=== PATIENT | female | born 1945 | race Caucasian/White ===

== ENCOUNTER 2017-04-16 20:42 | Observation (INO) ==
[2017-04-16] MEDS ORDERED: SALINE FLUSH 10ml SYRINGE IVF PRN (20:52)
[2017-04-16] MEDS ORDERED: METHYLPREDNISOLONE SOD SUCC IV ONE (20:53)
[2017-04-16] MEDS ORDERED: NS IV ONE (20:53)
[2017-04-16] MEDS ORDERED: KETOROLAC 30 MG/ML INJECTION IVP ONE (20:53)
[2017-04-16] MEDS ORDERED: NS 1,000 ML IV ONE (20:57)
--- OUTSIDE RECORDS SUMMARY | 2017-04-16 21:03 | External Medical Summary | Continuity of Care Document ---
:1945 Author Organization Shereen [employer] Phone Unavailable Support Name Relationship Address Phone ANDREW ALCALA M.D. Unavailable [address] [place] [address] SHAAN VENTURA M.D. Unavailable [address] [place] [address] ANESTHESIA, MID FELECIA MAJOR GIFTS MANAGER Unavailable [address] [place] [address] VICKI KWON Unavailable [address] [place] [address] Care Team Providers Name Role Phone ANDREW ALCALA M.D. Primary Care Physician Insurance Providers Guarantor Annamarie Kwno Address [address] [place] [address] Payer s Medicare Policy Number [id number] Subscriber's Name Annamarie Kwon Relationship 01 Self / Same As Patient Effective Date 16 Payer [facility] Policy Number [id number] Subscriber's Name Annamarie Kwon Relationship 01 Self / Same As Patient Effective Date 16 Advance Directives Directive Response Recorded Date/Time Patient Resuscitation Status Full Code 02/04/16 7:05am Problems Active Problems Medical Problem Onset Date Status Multiple sclerosis 03/23/2011 Acute Pain, joint, knee 03/25/2011 Acute Spinal stenosis 03/23/2011 Acute Medications Current Home Medications Medication Dose Units Route Directions Days Qty Instructions Start Date Acetaminophen/Codeine 1 Ea Oral As Needed 01/27/16 (Tylenol #3) 1 Ea Tab Baclofen 20 Mg Tab 20 Mg Oral Am,10MG Pm 02/03/16 Fingolimod Hydrochloride 0.5 Mg Oral Daily 01/27/16 (Gilenya) 0.5 Mg Cap Prednisone 10 Mg Gil Daily 02/03/16 Pregabalin (Lyrica) 50 50 Mg Oral Daily 01/27/16 Mg Cap Triamterene (Dyrenium) 100 Mg Oral Daily 01/27/16 100 Mg Cap Social History Social History Problem Response Recorded Date/Time Onset Date Status Smoking Status Never smoker 02/04/2016 7:05am Not Applicable Not Applicable Query Response Start Date Stop Date Smoking Status Never smoker Hospital Discharge Instructions No hospital discharge instructions. Plan of Care Discharge Date 02/04/16 12:00pm Prescriptions See Medication Section Functional Status Query Response Date Recorded Overall Activities Daily Living Limited/One person assist February 04, 2016 7: 05am Ability/Staff Support Memory Description Short term intact February 04, 2016 7:05am intermediate teacher intact Allergies, Adverse Reactions, Alerts Allergen Type Severity Reaction Status Last Updated Sulfa Antibiotics ([id number]) Allergy Unknown rash Active 02/03/16 Micropore tape Allergy Unknown Active 02/04/16 Immunizations Query Response on File Recorded Date/Time Pneumonia Vaccine Received No 02/04/16 7:05am Had a Tetanus Toxoid Vaccination less than 10yrs Yes 02/04/16 7:05am ago Vital Signs Acute Vital Signs Vital Response Date/Time Blood Pressure 153/75 mm Hg 02/04/2016 11:15am Blood Pressure Mean 99 mm Hg 02/04/2016 10:55am Blood Pressure Mean 101 mm Hg 02/04/2016 11:15am Temperature (Fahrenheit) 97.6 degrees F (96.0 - 99.9) 02/04/2016 11:00am Temperature (Calculated Celsius) 36.92432 degrees C 02/04/2016 11:00am Temperature Source Oral 02/04/2016 11:00am Temp 97.6 degrees F (96.0 - 99.9) 02/04/2016 11:00am Temperature (Calculated Celsius) 36.22656 degrees C 02/04/2016 11:00am Pulse Pulse Rate (adult) 83 bpm (60 - 100) 02/04/2016 11:15am Pulse Rate (adult) 81 bpm (60 - 100) 02/04/2016 10:55am Respiratory Rate 16 breaths per minute (10 - 20) 02/04/2016 11:15am Respiratory Rate 14 bpm (10 - 20) 02/04/2016 10:55am Height (Feet) 5 ft 02/04/2016 7:05am Height (Inches) 5.0 in. 02/04/2016 7:05am Weight (Pounds) 193.8 lbs 02/04/2016 7:05am Height 5 ft 5 in 02/04/2016 7:05am Weight 193.80 lb 02/04/2016 7:05am Body Mass Index 32.2 kg/m^2 02/04/2016 7:05am Ambulatory Vital Signs Vital Response Date/Time Temperature 98.2 degrees F 01/27/2016 11:39am Blood Pressure, Sitting, Left Arm 127/63 mm Hg 01/27/2016 11:39am Pulse Rate 87 bpm 01/27/2016 11:39am Respiration Rate 16 bpm 01/27/2016 11:39am Pulse Oximetry Pulse Oximetry 01/27/2016 11:39am Results Laboratory Results Test Name Result Units Flags Reference Collection Result Comments Date/Time Date/Time Rheumatoid <15 IU/mL 0-29 04/30/2015 04/30/2015 Rheumatoid Factor performed at [facility] Reference Lab, [address] [place] [address]
Factor 1:01pm 11:34pm [id number] Smiley Henriquez DO&#13 ;
Procedures Procedure Status Date Provider(s) N BLOCK INJ INTERCOST RIGGING UP MAN Completed 11/11/14 ANDREW ALCALA M.D. INJ TRIGGER POINT 1/2 MUSCL Completed 11/11/14 ANDREW ALCALA M.D. Laparoscopic cholecystectomy Completed 02/04/16 SHAAN VENTURA M.D. Encounters Encounter Location Arrival/Admit Date Discharge/Depart Date Attending Provider Departed Shereen Tafoya 02/04/16 7:05am 02/04/16 12:00pm SHAAN VENTURA Surgical Day Mem. Leyda Rivers M.D. Care Office Visit SHAAN VENTURA 01/27/16 11:30am SHAAN VENTURA M.D. Registered Shaan Ventura 01/27/16 11:28am SHAAN VENTURA M.D. Departed Clinic Shereen Tafoya 11/10/15 11:00am 11/10/15 11:30am ANDREW ALCALA Mem., M.D. Registered Shereen Tafoya 06/06/15 9:08am ANDREW ALCALA [facility] Desai Registered Shereen Tafoya 05/26/15 8:00am CARIANDREW Referred Mem. [facility] Ailyn Sami Registered Shereen Tafoya 05/13/15 10:51am CARIDAGOY [facility] Mem[facility] 05/02/15 12:06pm SHARYN [facility] Reg[facility] Shereen Tafoya 04/30/15 11:18am LIBRODO, Referred Mem. [facility] STEPHEN Quinonez M.D. Office Visit [facility] 04/30/15 10:30am SHARYN [facility] Registered [facility] 04/30/15 10:30am SHARYN LOYOLA [facility] Shereen Tafoya 04/30/15 10:30am SHARYN LOYOLA [facility] 03/14/15 8:30am [facility] Shereen Tafoya 03/14/15 8:30am SHARYN LOYOLA [facility] Registered Shereen Tafoya 03/14/15 8:04am LIBRODO, Referred Mem. Leyda Quinonez M.D. Departed Clinic Shereen Tafoya 11/11/14 1:44pm 11/11/14 2:25pm CARIDAGOY Mem. [facility] Ailyn Sami Registered Shereen Tafoya 08/14/14 7:04pm CARIANDREW Referred Mem. [facility] Ailyn Desai Registered Shereen Tafoya 03/15/14 1:28pm LIBRODO, Referred Mem. [facility] STEPHEN Giselle Registered Shereen Tafoya 01/10/14 11:50am CARI, ANDREW Referred Mem. [facility] Ailyn Sami Registered Shereen Tafoya 11/05/13 2:59pm [facility] 07/04/13 11:06am CARI, [facility]REW [facility]
--- OUTSIDE RECORDS SUMMARY | 2017-04-16 21:03 | External Medical Summary | Referral Summary ---
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 Discharge Diagnosis: Multiple sclerosis Discharge Diagnosis: Post herpetic neuralgia Discharge Diagnosis: Vitamin B12 deficiency Discharge Diagnosis: Vitamin D deficiency Discharge Disposition: 01-Home or Self Care Attending Physician: Gautam Davila MD Admitting Physician: Gautam Davila MD Vital Signs Most recent to oldest [Reference Range]: 1 Peripheral Pulse Rate [60-100 bpm] 64 bpm (08/29/14 8:17 AM) Blood Pressure [90-140/60-90 mmHg] 120/80 mmHg (08/29/14 8:17 AM) Problem List Condition Effective Dates Status Health Status Informant Gait abnormality(Confirmed) Active Blepharitis(Confirmed) Active Vitamin B12 deficiency(Confirmed) Active Pelvic fracture(Confirmed) Active History of long-term treatment with Active high-risk medication(Confirmed) Shingles(Confirmed) Resolved Mastoiditis(Confirmed) Active Multiple sclerosis Active (disorder)(Confirmed)1 Overweight(Confirmed) Active Paresthesias(Confirmed) Active Postherpetic neuralgia(Confirmed) Active Primary open angle glaucoma Active (disorder)(Confirmed) Chicken pox(Confirmed) Resolved Vitamin D deficiency(Confirmed) Active 1s/p tysabri x4 yrs, stopped in 2012 Allergies, Adverse Reactions, Alerts No Known Medication Allergies Medications baclofen 10 mg oral tablet See Instructions, TAKE TWO TABLETS BY MOUTH TWICE A DAY, # 120 tabs, 3 Refill(s) , Pharmacy: [facility] #[id number], TAKE TWO TABLETS BY MOUTH TWICE A DAY Start Date: 02/10/15 Status: OrderedCalcium 600+D Oral, 0 Refill(s) Start Date: 01/29/15 Status: Orderedgabapentin 300 mg oral capsule 300 mg 1 caps, Oral, TID, # 90 caps, 0 Refill(s), Pharmacy: [facility] # [id number], 1 caps Oral TID Start Date: 02/24/15 Status: OrderedGilenya 0.5 mg, Oral, Daily, 0 Refill(s) Start Date: 10/04/13 Status: OrderedSimbrinza 1%- 0.2% ophthalmic suspension See Instructions, INSTILL ONE DROP TO THE RIGHT EYE TWICE A DAY, # 8 mL, 5 Refill(s), Pharmacy: [facility] #[id number] Start Date: 12/03/14 Status: OrderedVitamin B12 1,000 mcg, Oral, Daily, 0 Refill(s) Start Date: 11/16/13 Status: OrderedVitamin D3 2000 intl units oral capsule Intl_Units caps, Oral, Daily, 0 Refill(s) Start Date: 01/29/15 Status: OrderedXalatan 0.005% ophthalmic solution 1 drops, Eye-Right, Bedtime (once a day), # 2.5 mL, 0 Refill(s) Start Date: 10/04/13 Status: Ordered Results No data available for this section Immunizations No data available for this section Procedures Procedure Date Related Diagnosis Body Site Cataract of right eye 2001 Cataract of left eye 1999 back surgery1 Hysterectomy 1Tysabri Social History Social History Type Response Smoking Status Never smoker Assessment and Plan Extracted from: Title: Neurology Follow-up Office Note Author: Gautam Davila MD Date: 08/29/14 Impression and Plan Diagnosis Vitamin D deficiency (ICD9 268.9, Discharge, Medical). Vitamin B12 deficiency (ICD9 266.2, Discharge, Medical). Post herpetic neuralgia (ICD9 053.19, Discharge, Medical). Multiple sclerosis (ICD9 340, Discharge, Medical). termite treater use of drug (ICD9 V58.69, Discharge, Medical). Dx/Order Association Plan: Diagnosis: Multiple sclerosis Comment: MS, on Gilenya since 09/2012 s/p Daysi x4 years, off Jan 2012 On Gilenya, continue On baclofen 20mg bid, continue We discussed first PML case reported in a Gilenya patient, and need for vigilant monitoring of blood counts and symptoms We discussed about her shingles. We discussed that her Gilenya could potentially predispose her to having infections. Advised her to let me know if she continues to have infections, as we may need to consider switching her off of Gilenya--potentially to Aubagio On duloxetine, not helping--advised can stop Diagnosis: Post herpetic neuralgia Comment: On duloxetine, getting off Tried by PCP on Lyrica, apparently did not help Currently on hydrocodone and Depakote by PCP, helping--continue per PCP Has never been on gabapentin due to fear of weight gain Discussed Diagnosis: termite treater use of drug Comment: On Gilenya and Depakote, needs lab monitoring Diagnosis: Vitamin B12 deficiency Comment: On vit B12 1000mcg daily, continue Diagnosis: Vitamin D deficiency Comment: On vit D 2000 IU daily, continue .
--- OUTSIDE RECORDS SUMMARY | 2017-04-16 21:03 | External Medical Summary | Referral Summary ---
:1945 Author Organization [facility] Address [address] [place] [address] Care Team Providers Name Role Phone Radha Godoy Primary Care Physician Encounter [facility] Date(s): 11/22/14 - 11/22/14 [facility] [address] [place] [address] [place] Discharge Diagnosis: Multiple sclerosis Discharge Diagnosis: Blepharitis Discharge Diagnosis: Glaucoma suspect Discharge Diagnosis: POAG (primary open-angle glaucoma) Discharge Disposition: -Home or Self Care Attending Physician: Chelsie Dias MD Admitting Physician: Chelsie Dias MD Referring Physician: Radha Godoy MD Vital Signs No data available for this section Problem List Condition Effective Dates Status Health [...] # 120 tabs, 3 Refill(s) , Pharmacy: [facility] #[id number], TAKE TWO TABLETS BY MOUTH TWICE A DAY Start Date: 02/10/15 Status: OrderedCalcium 600+D Oral, 0 Refill(s) Start Date: 01/29/15 Status: Orderedgabapentin 300 mg oral capsule 300 mg 1 caps, Oral, TID, # 90 caps, 0 Refill(s), Pharmacy: [facility] # [id number], 1 caps Oral TID Start Date: 02/24/15 Status: OrderedGilenya 0.5 mg, Oral, Daily, 0 Refill(s) Start Date: 10/04/13 Status: OrderedSimbrinza 1%- 0.2% ophthalmic suspension See Instructions, INSTILL ONE DROP TO THE RIGHT EYE TWICE A DAY, # 8 mL, 5 Refill(s), Pharmacy: [facility] #[id number] Start Date: 12/03/14 Status: OrderedVitamin B12 1,000 [...] smoker Assessment and Plan Extracted from: Title: Ambulatory Patient Education Author: Chelsie Dias MD Date: 11/22/14 Ophthalmology Glaucoma Glaucoma happens when the fluid pressure in the eyeball is too high. The pressure cannot stay high for too long, or the eyeball may become damaged. Signs of glaucoma include: Having a hard time seeing in a dark room after being in a bright one. Having trouble seeing things out to the sides of you. Blurry sight. Seeing bright white lights or colors in front of your eyes. Headaches. Feeling sick to your stomach (nauseous) or throwing up (vomiting). Sudden vision loss. Glaucoma testing is an important part of taking care of your eyesight. HOME CARE Always use your eyedrops or pills as told by your doctor. Do not run out. Do not go away from home without your eyedrops or pills. Keep your appointments. Always tell a new doctor that you have glaucoma and how long you have had it. Tell the doctor about the eyedrops and pills you take. Do not use eyedrops or pills that have not been prescribed by your doctor. GET HELP RIGHT AWAY IF: You develop severe pain in the affected eye. You develop vision problems. You develop a bad headache in the area around the eye. You feel sick to your stomach or throw up. You start to have problems with the other eye. MAKE SURE YOU: Understand these instructions. Will watch your condition. Will get help right away if you are not doing well or get worse. Document Released: 2009 Document Revised: 07/03/2012 Document Reviewed: 2009 [facility] [place] Patient Information 2015 [employer] [place]. This information is not intended to replace advice given to you by your health care provider. Make sure you discuss any questions you have with your health care provider. No follow up information was provided. Referrals to Other Providers Referred by: Chelsie Dias MD
--- OUTSIDE RECORDS SUMMARY | 2017-04-16 21:03 | External Medical Summary | Referral Summary ---
:1945 Author Organization [facility] Address [address] [facility] [address] [place] [address] Care Team Providers Name Role Phone Radha Godoy Primary Care Physician Encounter VC 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 Discharge Diagnosis: Multiple sclerosis [...] # 120 tabs, 3 Refill(s) , Pharmacy: [facility] #[id number], TAKE TWO TABLETS BY MOUTH TWICE A DAY Start Date: 02/10/15 Status: OrderedCalcium 600+D Oral, 0 Refill(s) Start Date: 01/29/15 Status: Orderedgabapentin 300 mg oral capsule 300 mg 1 caps, Oral, TID, # 90 caps, 0 Refill(s), Pharmacy: [facility] # [id number], 1 caps Oral TID Start Date: 02/24/15 Status: OrderedGilenya 0.5 mg, Oral, Daily, 0 Refill(s) Start Date: 10/04/13 Status: OrderedSimbrinza 1%- 0.2% ophthalmic suspension See Instructions, INSTILL ONE DROP TO THE RIGHT EYE TWICE A DAY, # 8 mL, 5 Refill(s), Pharmacy: [facility] #[id number] Start Date: 12/03/14 Status: OrderedVitamin B12 1,000 [...] Medical). Multiple sclerosis (ICD9 340, Discharge, Medical). terminal computer operator use of drug (ICD9 V58.69, Discharge, Medical). [...] to fear of weight gain Discussed Diagnosis: terminal computer operator use of drug Comment: On Gilenya and Depakote, needs lab monitoring Diagnosis: Vitamin B12 deficiency Comment: On vit B12 1000mcg daily, continue Diagnosis: Vitamin D deficiency Comment: On vit D 2000 IU daily, continue .
--- OUTSIDE RECORDS SUMMARY | 2017-04-16 21:03 | External Medical Summary | Referral Summary ---
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 Discharge Diagnosis: Multiple sclerosis [...] # 120 tabs, 3 Refill(s) , Pharmacy: [facility] #[id number], TAKE TWO TABLETS BY MOUTH TWICE A DAY Start Date: 02/10/15 Status: OrderedCalcium 600+D Oral, 0 Refill(s) Start Date: 01/29/15 Status: Orderedgabapentin 300 mg oral capsule 300 mg 1 caps, Oral, TID, # 90 caps, 0 Refill(s), Pharmacy: [facility] # [id number], 1 caps Oral TID Start Date: 02/24/15 Status: OrderedGilenya 0.5 mg, Oral, Daily, 0 Refill(s) Start Date: 10/04/13 Status: OrderedSimbrinza 1%- 0.2% ophthalmic suspension See Instructions, INSTILL ONE DROP TO THE RIGHT EYE TWICE A DAY, # 8 mL, 5 Refill(s), Pharmacy: [facility] #[id number] Start Date: 12/03/14 Status: OrderedVitamin B12 1,000 [...] Medical). Multiple sclerosis (ICD9 340, Discharge, Medical). moth exterminator use of drug (ICD9 V58.69, Discharge, Medical). [...] to fear of weight gain Discussed Diagnosis: moth exterminator use of drug Comment: On Gilenya and Depakote, needs lab monitoring Diagnosis: Vitamin B12 deficiency Comment: On vit B12 1000mcg daily, continue Diagnosis: Vitamin D deficiency Comment: On vit D 2000 IU daily, continue .
--- OUTSIDE RECORDS SUMMARY | 2017-04-16 21:03 | External Medical Summary | Continuity of Care Document ---
:1945 Author Organization Shereen HerzogAkanksha Michelet [facility] Phone Unavailable Care Team Providers Name Role Phone ANDREW ALCALA M.D. Primary Care Physician Insurance Providers Guarantor Annamarie Luna Address [address] [place] [address] Payer [employer] Medicare Policy Number [id number] Subscriber's Name Annamarie Luna Relationship 01 Self / Same As Patient Payer [facility] Policy Number [id number] Subscriber's Name Annamarie Luna Relationship 01 Self / Same As Patient Advance Directives No advance directive information available. Problems Medical Problem Onset Date Status Degenerative joint disease of knee, left Unknown Lateral meniscal tear Unknown Multiple sclerosis 03/23/2011 Acute Osteoarthritis of left knee Unknown Pain, joint, knee 03/25/2011 Acute Sacroiliitis Unknown Spinal stenosis 03/23/2011 Acute Medications Current Home Medications Medication Dose Units Route Directions Days Qty Instructions Start Date Acetaminophen/Codeine 1 Ea Oral As Needed (Tylenol #3) 1 Ea Tab Baclofen 20 Mg Tab 20 Mg Oral Am,10MG Pm Fingolimod Hydrochloride 0.5 Mg Oral Daily (Gilenya) 0.5 Mg Cap Prednisone 10 Mg Gil Daily Pregabalin (Lyrica) 50 50 Mg Oral Daily Mg Cap Triamterene (Dyrenium) 100 Mg Oral Daily 100 Mg Cap Social History Social History Problem Response Recorded Date/Time Onset Date Status Smoking Status Never smoker 02/04/2016 7:05am Not Applicable Not Applicable Smoking Status Start Date Stop Date Never smoker Hospital Discharge Instructions No hospital discharge instruction information available. Plan of Care Discharge Date 01/14/17 2:59pm Prescriptions See Medication Section Functional Status No functional status information available. Allergies, Adverse Reactions, Alerts Allergen Type Severity Reaction Status Last Updated Sulfa Antibiotics ([id number]) Allergy Unknown rash Active 02/03/16 Micropore tape Allergy Unknown Active 02/04/16 Immunizations No immunization information available. Vital Signs Acute Vital Signs Vital Response Date/Time Blood Pressure 158/63 mm Hg 02/04/2016 12:00pm Blood Pressure Mean 99 mm Hg 02/04/2016 10:55am Blood Pressure Mean 94 mm Hg 02/04/2016 12:00pm Temperature (Fahrenheit) 97.6 degrees F (96.0 - 99.9) 02/04/2016 12:00pm Temperature (Calculated Celsius) 36.16686 degrees C 02/04/2016 12:00pm Temperature Source Oral 02/04/2016 12:00pm Temp 97.6 degrees F (96.0 - 99.9) 02/04/2016 11:00am Temperature (Calculated Celsius) 36.59886 degrees C 02/04/2016 11:00am Pulse Pulse Rate (adult) 83 bpm (60 - 100) 02/04/2016 12:00pm Pulse Rate (adult) 81 bpm (60 - 100) 02/04/2016 10:55am Respiratory Rate 16 breaths per minute (10 - 20) 02/04/2016 12:00pm Respiratory Rate 14 bpm (10 - 20) 02/04/2016 10:55am Height (Feet) 5 ft 02/04/2016 7:05am Height (Inches) 5.0 in. 02/04/2016 7:05am Weight (Pounds) 193.8 lbs 02/04/2016 7:05am Ambulatory Vital Signs Vital Response Date/Time Height 5 ft 5 in 01/14/2017 1:56pm Weight 213 lbs 01/14/2017 1:56pm Body Surface Area 2.15 m2 01/14/2017 1:56pm Body Mass Index 35.4 kg/m2 01/14/2017 1:56pm Pulse Oximetry Pulse Oximetry 01/14/2017 1:56pm Results Laboratory Results Test Name Result Units Flags Reference Collection Result Comments Date/Time Date/Time Rheumatoid <15 IU/mL 0-29 04/30/2015 04/30/2015 Rheumatoid Factor performed at [facility] Reference Lab, [address], [place] Factor 1:01pm 11:34pm [id number] Pulping Machine Operator Smiley Henriquez, DO Bedside 111 mg/dL 70-120 02/04/2016 02/05/2016 Glucose 7:44am 7:51am Creatinine 0.54 mg/dL L 0.9-1.6 04/22/2016 04/22/2016 8:30am 9:28am Glomerular 111.61 mL/min 04/22/2016 04/22/2016 MULTIPLY RESULT BY 1.210 IF THE PATIENT IS -TRISTANIAN Filtration 8:30am 9:28am Units are mL/min/1.73 m2 Rate Calc > 60 Normal kidney function 30-59 Moderately decreased kidney function 15-29 Severely decreased kidney function <15 End-stage kidney failure Procedures Procedure Status Date Provider(s) N BLOCK INJ INTERCOST PLANNING MANAGER Completed 11/11/14 ANDREW ALCALA M.D. INJ TRIGGER POINT /2 MUSCL Completed 11/11/14 ANDREW ALCALA M.D. LAPAROSCOPIC CHOLECYSTECTOMY Completed 02/04/16 INJ FOR SACROILIAC JOINT;PROVISION OF Completed 12/08/16 STEPHEN RIOS M.D. ANESTH,STEROID/THER AG Encounters Encounter Location Arrival/Admit Date Discharge/Depart Date Attending Provider Departed Clinic Shereen Tafoya 01/14/17 2:19pm 01/14/17 2:59pm Mem. Leyda RIOS M.D. 01/14/17 1:45pm Jamaal RIOS M.D. Departed Clinic Shereen Tafoya 12/08/16 12:33pm 12/08/16 1:05pm Mem. Leyda RIOS M.D. 12/08/16 9:16am Holli RIOS Mem. Leyda Quinonez M.D. Registered Shereen Tafoya 07/20/16 8:59am CARI[facility] ANDREW [facility] Shereen Tafoya 06/29/16 11:42am CARI, ANDREW [facility] Registered Shereen Tafoya 05/10/16 8:35am CARI, ANDREW Referred Mem. [facility] Registered Shereen Tafoya 04/22/16 8:26am CARI, ANDREW Referred Mem. [facility] Registered Shereen Tafoya 04/16/16 11:42am CARI, ANDREW Referred Mem. [facility] Registered Shereen Tafoya 03/12/16 8:30am SHARYN LOYOLA [facility]. [facility] Registered [facility] 03/12/16 8:30am [facility] Shereen Tafoya 03/12/16 8:12am LIBRODO, Referred Mem. [facility] STEPHEN Quinonez M.D. Registered Shaan Ventura 03/02/16 9:15am SHAAN VENTURA [facility] Tita Desai Departed Shereen Tafoya 02/04/16 7:05am 02/04/16 12:00pm SHAAN VENTURA [facility] Leyda Rivers M.D. Care Departed Clinic Shereen Tafoya 11/10/15 11:00am 11/10/15 11:30am CARI, ANDREW Mem. [facility] N. .Nanci Registered Shereen Tafoya 06/06/15 9:08am CARI, ANDREW Referred Mem. Hospital NA[facility] .Nanci Registered Shereen Tafoya 05/26/15 8:00am CARI, ANDREW Referred Mem. Hospital N. .DAkanksha Registered Shereen Tafoya 05/13/15 10:51am CARI, ANDREW Referred Mem. [facility] Registered Shereen Tafoya 05/02/15 12:06pm SHARYN LOYOLA Referred Mem. [facility] Registered Shereen Tafoya 04/30/15 11:18am LIBRODO, Referred Mem. [facility] STEPHEN Quinonez M.D. Registered Shereen Tafoya 04/30/15 10:30am SHARYN LOYOLA [facility]. [facility] Registered Shereen Tafoya 03/14/15 8:30am SHARYN LOYOLA [facility]. [facility] Registered Shereen Tafoya 03/14/15 8:04am Holli RIOS [facility] STEPHEN Quinonez M.D. Departed Clinic Shereen Tafoya 11/11/14 1:44pm 11/11/14 2:25pm ANDREW ALCALA [facility] Ailyn Desai Registered Shereen Tafoya 08/14/14 7:04pm ANDREW ALCALA [facility] Ailyn Desai
--- OUTSIDE RECORDS SUMMARY | 2017-04-16 21:04 | External Medical Summary | Referral Summary ---
:1945 Author Organization [facility] Address [address] [place] [address] Care Team Providers Name Role Phone Radha Godoy Primary Care Physician Encounter VC Date(s): 11/22/14 - 11/22/14 [facility] [address] [place] [address]- [place] Discharge Diagnosis: Multiple sclerosis [...] # 120 tabs, 3 Refill(s) , Pharmacy: [facility] #[id number], TAKE TWO TABLETS BY MOUTH TWICE A DAY Start Date: 02/10/15 Status: OrderedCalcium 600+D Oral, 0 Refill(s) Start Date: 01/29/15 Status: Orderedgabapentin 300 mg oral capsule 300 mg 1 caps, Oral, TID, # 90 caps, 0 Refill(s), Pharmacy: [facility] # [id number], 1 caps Oral TID Start Date: 02/24/15 Status: OrderedGilenya 0.5 mg, Oral, Daily, 0 Refill(s) Start Date: 10/04/13 Status: OrderedSimbrinza 1%- 0.2% ophthalmic suspension See Instructions, INSTILL ONE DROP TO THE RIGHT EYE TWICE A DAY, # 8 mL, 5 Refill(s), Pharmacy: [facility] #[id number] Start Date: 12/03/14 Status: OrderedVitamin B12 1,000 [...] Document Revised: 07/03/2012 Document Reviewed: [facility] Patient Information 2015 [employer]. This information is not intended to replace advice given to you by your health care provider. Make sure you discuss any questions you have with your health care provider. No follow up information was provided. Referrals to Other Providers Referred by: Chelsie Dias MD
--- OUTSIDE RECORDS SUMMARY | 2017-04-16 21:04 | External Medical Summary | Referral Summary ---
:1945 Author Organization [facility] Address [address] [place] [address] Care Team Providers Name Role Phone Radha Godoy Primary Care Physician Encounter VC Date(s): 01/29/15 - 01/29/[address] [facility] [address] [place], [place] [address] Discharge Diagnosis: History of long-term treatment with high-risk medication Discharge Diagnosis: Vitamin D deficiency Discharge Diagnosis: Postherpetic neuralgia Discharge Diagnosis: Vitamin B12 deficiency Discharge Diagnosis: Multiple sclerosis (disorder) Discharge Disposition: 01-Home or Self Care Attending Physician: Gautam Davila MD Admitting Physician: Gautam Davila MD Referring Physician: Radha Godoy MD Vital Signs Most recent to oldest [Reference Range]: 1 Peripheral Pulse Rate [60-100 bpm] 80 bpm (01/29/15 8:32 AM) Blood Pressure [90-140/60-90 mmHg] 118/74 mmHg (01/29/15 8:32 AM) Problem List Condition Effective Dates Status Health Status Informant Gait abnormality(Confirmed) Active Blepharitis(Confirmed) Active Vitamin B12 deficiency(Confirmed) Active History of long-term treatment with Active [...] MOUTH TWICE A DAY, # 120 tabs, eRx: [facility] #[id number], TAKE TWO TABLETS BY MOUTH TWICE A DAY Start Date: 01/10/15 Status: OrderedCalcium 600+D Oral, 0 Refill(s) Start Date: 01/29/15 Status: Orderedgabapentin 300 mg oral capsule 300 mg 1 caps, Oral, BID, # 60 caps, 2 Refill(s), Pharmacy: [facility] # [id number], 1 caps Oral BID Start Date: 01/29/15 Status: OrderedGilenya 0.5 mg, Oral, Daily, 0 Refill(s) Start Date: 10/04/13 Status: OrderedSimbrinza 1%- 0.2% ophthalmic suspension See Instructions, INSTILL ONE DROP TO THE RIGHT EYE TWICE A DAY, # 8 mL, 5 Refill(s), Pharmacy: [facility] #[id number] Start Date: 12/03/14 Status: OrderedVitamin B12 1,000 [...] Smoking Status Never smoker Assessment and Plan No data available for this section
--- OUTSIDE RECORDS SUMMARY | 2017-04-16 21:04 | External Medical Summary | Referral Summary ---
:1945 Author Organization [facility] Address [address] [place] [address] Care Team Providers Name Role Phone Radha Godoy Primary Care Physician Encounter VC Date(s): 11/22/14 - 11/22/14 [facility] [address] [place] [address]- [place] Discharge Diagnosis: Multiple sclerosis [...] Refill(s) , Pharmacy: [facility] #[id number], TAKE TWO TABLETS BY MOUTH TWICE A DAY Start Date: 02/10/15 Status: OrderedCalcium 600+D Oral, 0 Refill(s) Start Date: 01/29/15 Status: Orderedgabapentin 300 mg oral capsule 300 mg 1 caps, Oral, TID, # 90 caps, 0 Refill(s), Pharmacy: [facility] # [id number], 1 caps Oral TID Start Date: 02/24/15 Status: OrderedGilenya 0.5 mg, Oral, Daily, 0 Refill(s) Start Date: 10/04/13 Status: OrderedSimbrinza 1%- 0.2% ophthalmic suspension See Instructions, INSTILL ONE DROP TO THE RIGHT EYE TWICE A DAY, # 8 mL, 5 Refill(s), Pharmacy: [facility] #[id number] Start Date: 12/03/14 Status: OrderedVitamin B12 1,000 [...] 2009 Document Revised: 07/03/2012 Document Reviewed: 2009 [facility] Patient Information 2015 [employer]. This information is not intended to replace advice given to you by your health care provider. Make sure you discuss any questions you have with your health care provider. No follow up information was provided. Referrals to Other Providers Referred by: Chelsie Dias MD
--- OUTSIDE RECORDS SUMMARY | 2017-04-16 21:04 | External Medical Summary | Referral Summary ---
:1945 Author Organization [facility] Address [address] [place] [address] Care Team Providers Name Role Phone Radha Godoy Primary Care Physician Encounter VC Date(s): 01/29/15 - 01/29/[address] [facility] [address] [place], [place] [address] Discharge Diagnosis: History of long-term treatment with [...] treatment with Active high-risk medication(Confirmed) Shingles(Confirmed) Resolved terminal gauger use of drug(Confirmed) Active Mastoiditis(Confirmed) Active Multiple sclerosis Active (disorder)(Confirmed)1 Thoracic neuralgia(Confirmed) Active Overweight(Confirmed) Active Paresthesias(Confirmed) Active Postherpetic neuralgia(Confirmed) Active Primary open angle glaucoma Active (disorder)(Confirmed) Chicken pox(Confirmed) Resolved Vitamin D deficiency(Confirmed) Active 1s/p tysabri x4 yrs, stopped in 2012 Allergies, Adverse Reactions, Alerts Substance Reaction Severity Status sulfa drugs Active Medications baclofen 10 mg oral tablet 20 mg 2 tabs, Oral, BID, # 120 tabs, 3 Refill(s), Pharmacy: [facility] # [id number], 2 tabs Oral BID Start Date: 05/30/15 Status: OrderedCalcium 600+D Oral, 0 Refill(s) Start Date: 01/29/15 Status: Orderedgabapentin 300 mg oral capsule 300 mg 1 caps, Oral, BID, # 90 caps, 0 Refill(s), Pharmacy: [facility] # [id number], 1 caps Oral BID Start Date: 05/30/15 Status: OrderedGilenya 0.5 mg oral capsule 0.5 mg, Oral, Daily, # 30 caps, 11 Refill(s), called to pharmacy (Rx) Start Date: 07/17/15 Status: OrderedSimbrinza 1%- 0.2% ophthalmic suspension See Instructions, INSTILL ONE DROP TO THE RIGHT EYE TWICE A DAY, # 8 mL, 5 Refill(s), Pharmacy: [facility] #[id number] Start Date: 12/03/14 Status: OrderedVitamin B12 1,000 [...] Office Note Author: Gautam Davila MD Date: 01/29/15 Impression and Plan Diagnosis Multiple sclerosis (disorder) (EGO28-[id number] G35, Discharge, Medical). Postherpetic neuralgia (USG69-EP B02.29, Discharge, Medical). History of long-term treatment with high-risk medication (FIM21-WK Z92.89, Discharge, Medical). Vitamin B12 deficiency (QOC11-FV E53.8, Discharge, Medical). Vitamin D deficiency (GWM91-SD E55.9, Discharge, Medical). Dx/Order Association Plan: Diagnosis: 1. Multiple sclerosis (disorder) Comment: MS, on Gilenya since 09/2012 s/p Tysabri x4 years, off Jan 2012 On Gilenya, continue If with more infections/shingles will have to consider taking off Gilenya On baclofen 20mg bid, continue Discussed 3 PML cases reported in MS patients on Gilenya, and need for monitoring of possible symptoms--no need to switch at this time Not smoking, on vit D Diagnosis: 2. Postherpetic neuralgia Comment: Has tried hydrocodone, Depakote, duloxetine, Lyrica per pt Has not tried GBP, CBZ, OXC Discussed about possible trial with GBP, side effects discussed and accepted by patient (including possible weight gain) Will start GBP trial (slowly escalating dose) up to 300mg bid for now--can increase higher if needed and no side effects Diagnosis: 3. History of long-term treatment with high-risk medication Comment: On Gilenya, needs lab monitoring (especially LFT) s/p Tysabri in past Diagnosis: 4. Vitamin B12 deficiency Comment: On B12 1000mcg daily, continue Diagnosis: 5. Vitamin D deficiency Comment: On vit D 2000 IU daily, continue .
--- OUTSIDE RECORDS SUMMARY | 2017-04-16 21:04 | External Medical Summary | Referral Summary ---
:1945 Author Organization [facility] Address [address] [place] [address] Care Team Providers Name Role Phone Radha Godoy Primary Care Physician Encounter VC [facility] [id number] Date(s): 03/29/16 - 03/29/[address] [facility] [address] [place] [address]- [place] Discharge Diagnosis: Thoracic neuralgia Discharge Diagnosis: Vitamin D deficiency Discharge Diagnosis: Multiple sclerosis (disorder) Discharge Diagnosis: Leg swelling Discharge Diagnosis: skilled nursing use of drug Discharge Disposition: 01-Home or Self Care Attending Physician: Gautam Davila MD Admitting Physician: Gautam Davila MD Vital Signs Most recent to oldest [Reference Range]: 1 Peripheral Pulse Rate [60-100 bpm] 78 bpm (03/29/16 8:23 AM) Blood Pressure [90-140/60-90 mmHg] 120/70 mmHg (03/29/16 8:23 AM) Problem List Condition Effective Dates Status Health Status Informant Gait abnormality(Confirmed) Active Blepharitis(Confirmed) Active Vitamin B12 deficiency(Confirmed) Active Pelvic fracture(Confirmed) Active History of long-term treatment with Active high-risk medication(Confirmed) Shingles(Confirmed) Resolved skilled nursing use of drug(Confirmed) Active Mastoiditis(Confirmed) Active Multiple sclerosis Active (disorder)(Confirmed)1 Thoracic neuralgia(Confirmed) Active Overweight(Confirmed) Active Paresthesias(Confirmed) Active Postherpetic neuralgia(Confirmed) Active Primary open angle glaucoma Active (disorder)(Confirmed) Leg swelling(Confirmed) Active Chicken pox(Confirmed) Resolved Vitamin D deficiency(Confirmed) Active 1s/p tysabri x4 yrs, stopped in 2012 Allergies, Adverse Reactions, Alerts Substance Reaction Severity Status sulfa drugs Active Medications baclofen 10 mg oral tablet 20 mg 2 tabs, Oral, BID, X 30 days, # 120 tabs, 5 Refill(s), Pharmacy: [facility] #[id number], 2 tabs Oral BID,x30 days Start Date: 10/13/15 Stop Date: 04/10/16 Status: Orderedcholecalciferol 2000 intl units oral tablet 2,000 Intl_Units 1 tabs, Oral, Daily, 0 Refill(s) Start Date: 03/29/16 Status: OrderedGilenya 0.5 mg oral capsule 0.5 mg, Oral, Daily, # 30 caps, 11 Refill(s), called to pharmacy (Rx) Start Date: 07/17/15 Status: OrderedLyrica 50 mg oral capsule 50 mg 1 caps, Oral, TID, 0 Refill(s) Start Date: 12/22/15 Status: OrderedSimbrinza 1%- 0.2% ophthalmic suspension See Instructions, INSTILL ONE DROP TO THE RIGHT EYE TWICE A DAY, # 8 mL, 5 Refill(s), Pharmacy: [facility] #[id number] Start Date: 12/03/14 Status: Orderedtriamterene See Instructions, 25mg PRN, 0 Refill(s) Start Date: 12/22/15 Status: OrderedTylenol with Codeine #3 tabs, Oral, q6hr, 0 Refill(s) Start Date: 09/02/15 Status: OrderedXalatan 0.005% ophthalmic solution 1 drops, [...]
--- OUTSIDE RECORDS SUMMARY | 2017-04-16 21:04 | External Medical Summary | Continuity of Care Document ---
:1945 Author Organization [facility] [employer] Phone Unavailable Care Team Providers Name Role Phone ANDREW ALCALA M.D. Primary Care Physician Insurance Providers Guarantor Annamarie Luna Address [address] [place] [address] Payer [employer] Medicare Policy Number [id number] Subscriber's Name Annamarie Luna Relationship 01 Self / Same As Patient Payer [facility] Policy Number [id number] Subscriber's Name Annamarie Luna Relationship 01 Self / Same As Patient Problems Active Problems Medical Problem Onset Date Status Lateral meniscal tear Unknown Multiple sclerosis 03/23/2011 Acute Pain, joint, knee 03/25/2011 Acute Sacroiliitis Unknown [...] discharge instructions. Plan of Care Discharge Date 12/08/16 1:05pm Prescriptions See Medication Section Functional Status No functional status results. Allergies, Adverse Reactions, Alerts Allergen Type Severity Reaction Status Last Updated Sulfa Antibiotics ([id number]) Allergy Unknown rash Active 02/03/16 Micropore tape Allergy Unknown Active 02/04/16 Immunizations No immunization records. Vital Signs Acute Vital Signs Vital Response Date/Time Blood Pressure 158/63 mm Hg 02/04/2016 12:00pm Blood Pressure Mean 99 mm Hg 02/04/2016 10:55am Blood Pressure Mean 94 mm Hg 02/04/2016 12:00pm Temperature (Fahrenheit) 97.6 degrees F (96.0 - 99.9) 02/04/2016 12:00pm Temperature (Calculated Celsius) 36.63596 degrees C 02/04/2016 12:00pm Temperature Source Oral 02/04/2016 12:00pm Temp 97.6 degrees F (96.0 - 99.9) 02/04/2016 11:00am Temperature (Calculated Celsius) 36.07797 degrees C 02/04/2016 11:00am Pulse Pulse Rate [...] Response Date/Time Height 5 ft 5 in 03/12/2016 8:43am Weight 195 lbs 03/12/2016 8:43am Body Surface Area 2.05 m2 03/12/2016 8:43am Body Mass Index 32.4 kg/m2 03/12/2016 8:43am Pulse Oximetry Pulse Oximetry 03/12/2016 8:43am Results Laboratory Results Test Name Result Units Flags Reference Collection Result Comments Date/Time Date/Time Rheumatoid <15 IU/mL 0-29 04/30/2015 04/30/2015 Rheumatoid Factor performed at [facility] Reference Lab, [address] [place], [place]
Factor 1:01pm 11:34pm [id number] Smiley Henriquez DO&#13 ;
Bedside 111 mg/dL 70-120 02/04/2016 02/05/2016 Glucose 7:44am 7:51am Creatinine 0.54 mg/dL L 0.9-1.6 04/22/2016 04/22/2016 8:30am 9:28am Glomerular 111.61 mL/min 04/22/2016 04/22/2016 MULTIPLY RESULT BY 1.210 IF THE PATIENT IS -[place]IZEN OF [place]
Filtration 8:30am 9:28am Units are mL/min/1.73 m2
Rate Calc
> 60 Normal kidney function
30-59 Moderately decreased kidney function
15-29 Severely decreased kidney function
<15 End-stage kidney failure
Procedures Procedure Status Date Provider(s) N BLOCK INJ INTERCOST RAW SCALES OPERATOR Completed 11/11/14 ANDREW ALCALA M.D. INJ TRIGGER POINT 1/2 MUSCL Completed 11/11/14 ANDREW ALCALA M.D. LAPAROSCOPIC CHOLECYSTECTOMY Completed 02/04/16 Encounters Encounter Location Arrival/Admit Date Discharge/Depart Date Attending Provider Departed Clinic She[facility] T[facility]oya 12/08/16 12:33pm 12/08/16 1:05pm Mem. Leyda RIOS M.D. Office Visit [facility] 12/08/16 10:30am Lexie RIOSs STEPHEN RIOS 12/08/16 10:30am [facility] STEPHEN Quinonez M.D. Registered [facility]oya 12/08/16 9:16am [facility] Referred Mem. Leyda Quinonez M.D. Registered [facility] 07/20/16 8:59am CARI, ANDREW Referred Mem. Hospital Ailyn Desai Registered Shereen Tafoya 06/29/16 11:42am CARI, ANDREW Referred Mem. Hospital Ailyn Desai Registered Shereen Tafoya 05/10/16 8:35am CARI, ANDREW Referred Mem. Hospital Ailyn Desai Registered Shereen Tafoya 04/22/16 8:26am CARI, ANDREW Referred Mem. Hospital NAkanksha Desai Registered Shereen Tafoya 04/16/16 11:42am CARI, ANDREW Referred Mem. [facility] Ailyn Desai Office Visit [facility] 03/12/16 8:30am [facility] WILLI Registered [facility] 03/12/16 8:30am SHARYN LOYOLA [facility] WILLI Registered Shereen Tafoya 03/12/16 8:30am SHARYN LOYOLA [facility]. [facility] WILLI Registered Shereen Tafoya 03/12/16 8:12am LIBRODO, Referred Mem. [facility] STEPHEN Quinonez M.D. Office Visit [facility] 03/02/16 9:15am SHAAN VENTURA M.D. Registered Shaan Ventura 03/02/16 9:15am SHAAN VENTURA M.D. Office Visit [facility] 02/16/16 2:45pm SHAAN VENTURA M.D. Office Visit [facility] 02/16/16 2:45pm SHAAN VENTURA M.D. Departed [facility]reen T[facility]oya 02/04/16 7:05am 02/04/16 12:00pm SHAAN VENTURA Surgical Day [facility]. Leyda Rivers M.D. Care Office Visit [facility] 01/27/16 11:30am SHAAN VENTURA M.D. Departed Clinic Shereen Tafoya 11/10/15 11:00am 11/10/15 11:30am [facility] Mem[facility] Hospital Ailyn Desai Registered Shereen Tafoya 06/06/15 9:08am CARIANDREW Referred Mem. Hospital Ailyn Desai Registered Shereen Tafoya 05/26/15 8:00am ANDREW ALCALA Referred Mem. [facility] Ailyn Desai Registered Shereen Tafoya 05/13/15 10:51am ANDREW ALCALA Referred Mem. [facility] Ailyn Desai Registered Shereen Tafoya 05/02/15 12:06pm SHARYN LOYOLA Referred Mem. [facility] Registered Shereen Tafoya 04/30/15 11:18am LIBRODO, Referred Mem. [facility] STEPHEN Quinonez M.D. Office Visit [facility] 04/30/15 10:30am SHARYN LOYOLA [facility] PA-C Registered Shereen Tafoya 04/30/15 10:30am SHARYN LOYOLA Clinic [facility]. [facility] Office Visit [facility] 03/14/15 8:30am SH[facility]N [facility]A [facility] PA-C Registered Shereen Tafoya 03/14/15 8:30am SHARYN LOYOLA Clinic [facility]. [facility] Registered Shereen Tafoya 03/14/15 8:04am LIBRODO, Referred Mem. [facility] STEPHEN Quinonez M.D. Departed Clinic Shereen Tafoya 11/11/14 1:44pm 11/11/14 2:25pm ANDREW ALCALA Mem. [facility] Ailyn Desai Registered Shereen Tafoya 08/14/14 7:04pm ANDREW ALCALA Referred Mem. [facility] Ailyn Desai Registered Shereen Tafoya 03/15/14 1:28pm LIBRODO, Referred Mem. [facility] STEPHEN Quinonez M.D.
--- OUTSIDE RECORDS SUMMARY | 2017-04-16 21:04 | External Medical Summary | Referral Summary ---
:1945 Author Organization [facility] Address [address] [facility] [address] [place] [address] Care Team Providers Name Role Phone Radha Godoy Primary Care Physician Encounter [facility] [id number] Date(s): 09/02/15 - 09/02/[address] [facility] [address] [facility] [address] [place] [address]- [place] Discharge Diagnosis: Multiple sclerosis (disorder) Discharge Diagnosis: [facility] use of drug Discharge Diagnosis: Thoracic neuralgia Discharge Diagnosis: Vitamin B12 deficiency Discharge Diagnosis: Paresthesias Discharge Diagnosis: Vitamin D deficiency Discharge Disposition: 01-Home or Self Care Attending Physician: Gautam Davila MD Admitting Physician: Gautam Davila MD Vital Signs Most recent to oldest [Reference Range]: 1 Peripheral Pulse Rate [60-100 bpm] 70 bpm (09/02/15 8:29 AM) Blood Pressure [90-140/60-90 mmHg] 120/80 mmHg (09/02/15 8:29 AM) Problem List Condition Effective Dates Status Health Status Informant Gait abnormality(Confirmed) Active Blepharitis(Confirmed) Active Vitamin B12 deficiency(Confirmed) Active Pelvic fracture(Confirmed) Active History of long-term treatment with Active high-risk medication(Confirmed) Shingles(Confirmed) Resolved M[facility] use of drug(Confirmed) Active Mastoiditis(Confirmed) Active Multiple [...] BID, # 120 tabs, 3 Refill(s), Pharmacy: [facility] # [id number], 2 tabs Oral BID Start Date: 05/30/15 Status: Orderedgabapentin 300 mg oral capsule 300 mg 1 caps, Oral, BID, # 90 caps, 0 Refill(s), Pharmacy: [facility] # [id number], 1 caps Oral BID Start Date: 05/30/15 Status: OrderedGilenya 0.5 mg oral capsule 0.5 mg, Oral, Daily, # 30 caps, 11 Refill(s), called to pharmacy (Rx) Start Date: 07/17/15 Status: OrderedSimbrinza 1%- 0.2% ophthalmic suspension See Instructions, INSTILL ONE DROP TO THE RIGHT EYE TWICE A DAY, # 8 mL, 5 Refill(s), Pharmacy: [facility] #[id number] Start Date: 12/03/14 Status: OrderedTylenol with Codeine #3 tabs, Oral, [...]
--- OUTSIDE RECORDS SUMMARY | 2017-04-16 21:04 | External Medical Summary | Referral Summary ---
:1945 Author Organization [facility] Address [address] [facility] [address] [place] [address] Care Team Providers Name Role Phone Radha Godoy Primary Care Physician Encounter [facility] [id number] Date(s): 08/29/14 - 08/29/14 [address] [facility] [address] [facility] [address] [place], [place] [address] Discharge Diagnosis: intermission coordinator use of drug Discharge Diagnosis: Multiple sclerosis [...] # 120 tabs, 3 Refill(s) , Pharmacy: [facility] #[id number], TAKE TWO TABLETS BY MOUTH TWICE A DAY Start Date: 02/10/15 Status: OrderedCalcium 600+D Oral, 0 Refill(s) Start Date: 01/29/15 Status: Orderedgabapentin 300 mg oral capsule 300 mg 1 caps, Oral, TID, # 90 caps, 0 Refill(s), Pharmacy: [facility] # [id number], 1 caps Oral TID Start Date: 02/24/15 Status: OrderedGilenya 0.5 mg, Oral, Daily, 0 Refill(s) Start Date: 10/04/13 Status: OrderedSimbrinza 1%- 0.2% ophthalmic suspension See Instructions, INSTILL ONE DROP TO THE RIGHT EYE TWICE A DAY, # 8 mL, 5 Refill(s), Pharmacy: [facility] #[id number] Start Date: 12/03/14 Status: OrderedVitamin B12 1,000 [...] Medical). Multiple sclerosis (ICD9 340, Discharge, Medical). intermission coordinator use of drug (ICD9 V58.69, Discharge, Medical). [...] to fear of weight gain Discussed Diagnosis: intermission coordinator use of drug Comment: On Gilenya and Depakote, needs lab monitoring Diagnosis: Vitamin B12 deficiency Comment: On vit B12 1000mcg daily, continue Diagnosis: Vitamin D deficiency Comment: On vit D 2000 IU daily, continue .
--- OUTSIDE RECORDS SUMMARY | 2017-04-16 21:04 | External Medical Summary | Referral Summary ---
:1945 Author Organization [facility] Address [address] [facility] [address] [place] [address] Care Team Providers Name Role Phone Radha Godoy Primary Care Physician Encounter [facility] [id number] Date(s): 08/29/14 - 08/29/14 [address] [facility] [address] [facility] [address] [place], [place] [address] Discharge Diagnosis: manager long term care use of drug Discharge Diagnosis: Multiple sclerosis [...] # 120 tabs, 3 Refill(s) , Pharmacy: [facility] #[id number], TAKE TWO TABLETS BY MOUTH TWICE A DAY Start Date: 02/10/15 Status: OrderedCalcium 600+D Oral, 0 Refill(s) Start Date: 01/29/15 Status: Orderedgabapentin 300 mg oral capsule 300 mg 1 caps, Oral, TID, # 90 caps, 0 Refill(s), Pharmacy: [facility] # [id number], 1 caps Oral TID Start Date: 02/24/15 Status: OrderedGilenya 0.5 mg, Oral, Daily, 0 Refill(s) Start Date: 10/04/13 Status: OrderedSimbrinza 1%- 0.2% ophthalmic suspension See Instructions, INSTILL ONE DROP TO THE RIGHT EYE TWICE A DAY, # 8 mL, 5 Refill(s), Pharmacy: [facility] #[id number] Start Date: 12/03/14 Status: OrderedVitamin B12 1,000 [...] Medical). Multiple sclerosis (ICD9 340, Discharge, Medical). [facility] use of drug (ICD9 V58.69, Discharge, Medical). [...] to fear of weight gain Discussed Diagnosis: manager long term care use of drug Comment: On Gilenya and Depakote, needs lab monitoring Diagnosis: Vitamin B12 deficiency Comment: On vit B12 1000mcg daily, continue Diagnosis: Vitamin D deficiency Comment: On vit D 2000 IU daily, continue .
--- OUTSIDE RECORDS SUMMARY | 2017-04-16 21:04 | External Medical Summary | Continuity of Care Document ---
:1945 Author Organization Via [facility] Allergies Active Description Code Type Severity Reaction Onset Reported/ Identified Relationship Clinical to Patient Status Yes SULFA Drug N/A N/A Aller gy Medications There is no data. Problems There is no data. Procedures There is no data. Results There is no data. Encounters ACCT No. Visit Discharge Status Pt. Type Provider Facility Loc./Unit Complaint Date/Time [id number] 07/16/2013 07/16/2013 CLS Outpatient 09:44:00 23:59:59 [id number] 05/18/2013 05/18/2013 CLS Outpatient 08:00:00 23:59:59 [id number] 03/07/2017 03/07/2017 DIS Outpatient [id number] 15:16:32 15:16:32 [id number] 02/02/2017 02/02/2017 CLS Outpatient [id number] 18:54:20 23:59:59 [id number] 01/19/2017 01/19/2017 CLS Outpatient [id number] 15:56:32 23:59:59 [id number] 01/12/2017 01/12/2017 DIS Outpatient [id number] 09:21:25 09:21:25 [id number] 01/11/2017 01/11/2017 DIS Outpatient [id number] 08:14:41 08:14:41 [id number] 01/10/2017 01/10/2017 CLS Outpatient [id number] 10:56:57 23:59:59 [id number] 01/07/2017 01/07/2017 CLS Outpatient [id number] 17:20:21 23:59:59 [id number] 01/07/2017 01/07/2017 DIS Outpatient [id number] 13:37:14 13:37:14 [id number] 01/07/2017 01/07/2017 DIS Outpatient [id number] 12:09:10 12:09:10 [id number] 01/07/2017 01/07/2017 DIS Outpatient [id number] 11:58:22 11:58:22 [id number] 10/18/2016 10/18/2016 DIS Outpatient [id number] 07:45:09 07:45:09 [id number] 09/28/2016 09/28/2016 CLS Outpatient [id number] 08:17:13 23:59:59 [id number] 09/27/2016 09/27/2016 DIS Outpatient [id number] 08:48:15 08:48:15 [id number] 09/24/2016 09/24/2016 CLS Outpatient [id number] 13:18:32 23:59:59 [id number] 09/24/2016 09/24/2016 DIS Outpatient [id number] 14:53:13 14:53:14 [id number] 09/24/2016 09/24/2016 DIS Outpatient [id number] 14:40:40 14:40:42 [id number] 09/24/2016 09/24/2016 DIS Outpatient [id number] 13:10:39 13:10:41 [id number] 09/23/2016 09/23/2016 CLS Outpatient [id number] 15:19:47 23:59:59 [id number] 08/09/2016 08/09/2016 DIS Outpatient [id number] 12:31:21 12:31:21 [id number] 08/06/2016 08/06/2016 DIS Outpatient [id number] 08:57:11 08:57:11 [id number] 08/06/2016 08/06/2016 DIS Outpatient [id number] 08:55:28 08:55:28 [id number] 08/05/2016 08/05/2016 DIS Outpatient [id number] 13:59:50 13:59:50 [id number] 08/05/2016 08/05/2016 DIS Outpatient [id number] 13:48:13 13:48:13 [id number] 08/05/2016 08/05/2016 DIS Outpatient [id number] 13:10:52 13:10:52 [id number] 08/05/2016 08/05/2016 DIS Outpatient [id number] 12:16:18 12:16:18 [id number] 08/05/2016 08/05/2016 DIS Outpatient [id number] 12:16:17 12:16:17 [id number] 08/05/2016 08/05/2016 DIS Outpatient [id number] 12:16:16 12:16:16 [id number] 08/05/2016 08/05/2016 DIS Outpatient [id number] 12:16:14 12:16:14 [id number] 08/05/2016 08/05/2016 DIS Outpatient [id number] 12:16:13 12:16:14 [id number] 08/05/2016 08/05/2016 DIS Outpatient [id number] 12:12:41 12:12:41 [id number] 08/05/2016 08/05/2016 DIS Outpatient [id number] 12:07:22 12:07:22 [id number] 08/05/2016 08/05/2016 DIS Outpatient [id number] 12:07:04 12:07:04 [id number] 07/05/2016 07/05/2016 DIS Outpatient [id number] 14:21:53 14:21:53 [id number] 07/05/2016 07/05/2016 DIS Outpatient [id number] 09:16:48 09:16:48 [id number] 07/02/2016 07/02/2016 CLS Outpatient [id number] 12:30:22 23:59:59 [id number] 07/02/2016 07/02/2016 DIS Outpatient [id number] 13:29:58 13:29:58 [id number] 07/02/2016 07/02/2016 DIS Outpatient [id number] 13:22:31 13:22:31 [id number] 07/02/2016 07/02/2016 DIS Outpatient [id number] 12:51:54 12:51:54 [id number] 07/02/2016 07/02/2016 DIS Outpatient [id number] 12:48:56 12:48:56 [id number] 07/02/2016 07/02/2016 DIS Outpatient [id number] 12:06:58 12:06:58 [id number] 05/20/2016 05/20/2016 CLS Outpatient [id number] 10:07:29 23:59:59 [id number] 05/20/2016 05/20/2016 DIS Outpatient [id number] 07:39:33 07:39:33 [id number] 05/12/2016 05/12/2016 CLS Outpatient [id number] 08:32:03 23:59:59 [id number] 05/07/2016 05/07/2016 DIS Outpatient [id number] 09:08:08 09:08:08 [id number] 05/07/2016 05/07/2016 DIS Outpatient [id number] 09:06:47 09:06:47 [id number] 05/06/2016 05/06/2016 CLS Outpatient [id number] 13:47:12 23:59:59 [id number] 05/06/2016 05/06/2016 CLS Outpatient [id number] 13:14:17 23:59:59 [id number] 05/06/2016 05/06/2016 CLS Outpatient [id number] 13:09:45 23:59:59 [id number] 05/06/2016 05/06/2016 CLS Outpatient [id number] 13:04:09 23:59:59 [id number] 05/06/2016 05/06/2016 DIS Outpatient [id number] 15:43:32 15:43:32 [id number] 05/06/2016 05/06/2016 DIS Outpatient [id number] 14:49:44 14:49:44 [id number] 05/06/2016 05/06/2016 DIS Outpatient [id number] 13:08:39 13:08:39 [id number] 05/06/2016 05/06/2016 DIS Outpatient [id number] 13:05:45 13:05:45 [id number] 05/06/2016 05/06/2016 DIS Outpatient [id number] 13:05:44 13:05:44 [id number] 05/06/2016 05/06/2016 DIS Outpatient [id number] 13:05:42 13:05:42 [id number] 05/06/2016 05/06/2016 DIS Outpatient [id number] 13:05:27 13:05:27 [id number] 05/06/2016 05/06/2016 DIS Outpatient [id number] 13:05:26 13:05:26 [id number] 05/06/2016 05/06/2016 DIS Outpatient [id number] 13:05:25 13:05:25 [id number] 05/06/2016 05/06/2016 DIS Outpatient [id number] 13:05:24 13:05:24 [id number] 01/29/2016 01/29/2016 CLS Outpatient [id number] 09:54:04 23:59:59 [id number] 01/29/2016 01/29/2016 CLS Outpatient [id number] 09:54:02 23:59:59 [id number] 01/29/2016 01/29/2016 CLS Outpatient [id number] 09:54:00 23:59:59 [id number] 01/29/2016 01/29/2016 ACT Outpatient [id number] 07:08:43 07:08:43 [id number] 01/29/2016 01/29/2016 ACT Outpatient [id number] 07:08:42 07:08:42 [id number] 01/10/2017 Document [id number] 09:24:27 Registration [id number] 01/10/2017 Document [id number] 08:52:30 Registration [id number] 01/07/2017 Document [id number] 12:12:00 Registration [id number] 10/01/2016 Document [id number] 08:05:57 Registration [id number] 09/24/2016 Document [id number] 13:20:00 Registration [id number] 08/05/2016 Document [id number] 12:17:00 Registration 1217 [id number] 07/02/2016 Document [id number] 13:29:20 Registration [id number] 07/02/2016 Document [id number] 12:22:00 Registration 1222 [id number] 05/06/2016 Document [id number] 13:22:00 Registration 1322 [id number] 05/06/2016 Document [id number] 13:19:00 Registration 1319
--- OUTSIDE RECORDS SUMMARY | 2017-04-16 21:04 | External Medical Summary | Referral Summary ---
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 Discharge Diagnosis: Multiple [...] # 120 tabs, 3 Refill(s) , Pharmacy: [facility] #[id number], TAKE TWO TABLETS BY MOUTH TWICE A DAY Start Date: 02/10/15 Status: OrderedCalcium 600+D Oral, 0 Refill(s) Start Date: 01/29/15 Status: Orderedgabapentin 300 mg oral capsule 300 mg 1 caps, Oral, TID, # 90 caps, 0 Refill(s), Pharmacy: [facility] # [id number], 1 caps Oral TID Start Date: 02/24/15 Status: OrderedGilenya 0.5 mg, Oral, Daily, 0 Refill(s) Start Date: 10/04/13 Status: OrderedSimbrinza 1%- 0.2% ophthalmic suspension See Instructions, INSTILL ONE DROP TO THE RIGHT EYE TWICE A DAY, # 8 mL, 5 Refill(s), Pharmacy: [facility] #[id number] Start Date: 12/03/14 Status: OrderedVitamin B12 1,000 [...] Medical). Multiple sclerosis (ICD9 340, Discharge, Medical). computer terminal operator use of drug (ICD9 V58.69, Discharge, [...] to fear of weight gain Discussed Diagnosis: computer terminal operator use of drug Comment: On Gilenya and Depakote, needs lab monitoring Diagnosis: Vitamin B12 deficiency Comment: On vit B12 1000mcg daily, continue Diagnosis: Vitamin D deficiency Comment: On vit D 2000 IU daily, continue .
--- OUTSIDE RECORDS SUMMARY | 2017-04-16 21:04 | External Medical Summary | Referral Summary ---
:1945 Author Organization [facility] Address [address] [facility] [address] [place] [address] Care Team Providers Name Role Phone Radha Godoy Primary Care Physician Encounter [facility] [id number] Date(s): 05/13/15 - 05/13/15 [facility] [address] [facility] [address] [place] [address]- [place] Discharge Diagnosis: Vitamin B12 deficiency Discharge Diagnosis: Vitamin D deficiency Discharge Diagnosis: Medication side effects present Discharge Diagnosis: Postherpetic neuralgia Discharge Diagnosis: Thoracic neuralgia 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 Discharge Diagnosis: Multiple sclerosis (disorder) Discharge Disposition: 01-Home or Self Care Attending Physician: Gautam Davila MD Admitting Physician: Gautam Davila MD Vital Signs Most recent to oldest [Reference Range]: 1 Peripheral Pulse Rate [60-100 bpm] 66 bpm (05/13/15 3:27 PM) Blood Pressure [90-140/60-90 mmHg] 130/78 mmHg (05/13/15 3:27 PM) Problem List Condition Effective Dates Status Health Status Informant Gait abnormality(Confirmed) Active Blepharitis(Confirmed) Active Vitamin B12 deficiency(Confirmed) Active Pelvic fracture(Confirmed) Active History of long-term treatment with Active high-risk medication(Confirmed) Shingles(Confirmed) Resolved [facility] use of drug(Confirmed) Active Mastoiditis(Confirmed) Active Multiple sclerosis Active (disorder)(Confirmed)1 Thoracic neuralgia(Confirmed) Active Overweight(Confirmed) Active Paresthesias(Confirmed) Active Postherpetic neuralgia(Confirmed) Active Primary open angle glaucoma Active (disorder)(Confirmed) Chicken pox(Confirmed) Resolved Vitamin D deficiency(Confirmed) Active 1s/p tysabri x4 yrs, stopped in 2012 Allergies, Adverse Reactions, Alerts Substance Reaction Severity Status sulfa drugs Active Medications baclofen 10 mg oral tablet See Instructions, TAKE TWO TABLETS BY MOUTH TWICE A DAY, # 120 tabs, 3 Refill(s) , Pharmacy: [facility] #[id number], TAKE TWO TABLETS BY MOUTH TWICE A DAY Start Date: 02/10/15 Status: OrderedCalcium 600+D Oral, 0 Refill(s) Start Date: 01/29/15 Status: Orderedgabapentin 300 mg oral capsule 300 mg 1 caps, Oral, BID, # 90 caps, 0 Refill(s), other reason (Rx), 1 caps Oral TID Start Date: 05/13/15 Status: OrderedGilenya 0.5 mg, Oral, Daily, 0 Refill(s) Start Date: 10/04/13 Status: OrderedSimbrinza 1%- 0.2% ophthalmic suspension See Instructions, INSTILL ONE DROP TO THE RIGHT EYE TWICE A DAY, # 8 mL, 5 Refill(s), Pharmacy: [facility] #[id number] Start Date: 12/03/14 Status: OrderedVitamin B12 1,000 [...] Office Note Author: Gautam Davila MD Date: 05/13/15 Impression and Plan Diagnosis Multiple sclerosis (disorder) ([id number] G35, Discharge, Medical). [facility] use of drug (HGO53-BR Z79.899, Discharge, Medical). Thoracic neuralgia (WIB42-BY M79.2, Discharge, Medical). Postherpetic neuralgia (KMP48-LK B02.29, Discharge, Medical). Medication side effects present (YDH78-QC T50.905A, Discharge, Medical). Vitamin B12 deficiency (XNR46-TY E53.8, Discharge, Medical). Vitamin D deficiency (SEB32-RM E55.9, Discharge, Medical). Dx/Order Association Plan: Diagnosis: 1. Multiple sclerosis (disorder) Comment: MS, on Gilenya since 09/2012 s/p Tysabri x4 years, off Jan 2012 Last MRI brain 2013, stable On Gilenya, continue On baclofen 20mg bid, continue Not smoking, on vit D Diagnosis: 2. watermelon harvesting supervisor use of drug Comment: On Gilenya, needs lab monitoring Diagnosis: 3. Thoracic neuralgia Comment: Diagnosis: 4. Postherpetic neuralgia Comment: Diagnosis: 5. Medication side effects present Comment: R thoracic neuralgia, about T8-T10 area Refractory to medical therapy with depakote, hydrocodone, duloxetine, Lyrica Has not tried CBZ or oxcarbazepine--? Lidoderm patch? On GBP 300mg tid--helping some but having weight gain--tid not better than bid- -advised lower to GBP 300mg bid Discussed with patient, will image MRI t-spine wwo to rule out any structural issue (fracture--especially with steroid use and falls, disc, others) Will need CMP--order faxed to PCP office pt will have blood drawn there Strongly reconsider pain management Advised can try Voltaren gel locally for few days see if will help Diagnosis: 6. Vitamin B12 deficiency Comment: On vit B12 1000mcg daily, ciontinue Diagnosis: 7. Vitamin D deficiency Comment: On vit D 2000 IU daily, continue Additional Orders: Comment: Ordered: gabapentin 300 mg oral capsule,300 mg 1 caps, Oral, BID, # 90 caps, 0 Refill(s), other reason (Rx), 1 caps Oral TID .
--- OUTSIDE RECORDS SUMMARY | 2017-04-16 21:04 | External Medical Summary | Referral Summary ---
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 Discharge Diagnosis: Multiple sclerosis [...] # 120 tabs, 3 Refill(s) , Pharmacy: [facility] #[id number], TAKE TWO TABLETS BY MOUTH TWICE A DAY Start Date: 02/10/15 Status: OrderedCalcium 600+D Oral, 0 Refill(s) Start Date: 01/29/15 Status: Orderedgabapentin 300 mg oral capsule 300 mg 1 caps, Oral, TID, # 90 caps, 0 Refill(s), Pharmacy: [facility] # [id number], 1 caps Oral TID Start Date: 02/24/15 Status: OrderedGilenya 0.5 mg, Oral, Daily, 0 Refill(s) Start Date: 10/04/13 Status: OrderedSimbrinza 1%- 0.2% ophthalmic suspension See Instructions, INSTILL ONE DROP TO THE RIGHT EYE TWICE A DAY, # 8 mL, 5 Refill(s), Pharmacy: [facility] #[id number] Start Date: 12/03/14 Status: OrderedVitamin B12 1,000 [...] Medical). Multiple sclerosis (ICD9 340, Discharge, Medical). intermediate accountant use of drug (ICD9 V58.69, Discharge, Medical). [...] to fear of weight gain Discussed Diagnosis: intermediate accountant use of drug Comment: On Gilenya and Depakote, needs lab monitoring Diagnosis: Vitamin B12 deficiency Comment: On vit B12 1000mcg daily, continue Diagnosis: Vitamin D deficiency Comment: On vit D 2000 IU daily, continue .
--- OUTSIDE RECORDS SUMMARY | 2017-04-16 21:04 | External Medical Summary | Referral Summary ---
:1945 Author Organization [facility] Address [address] [place] [address] Care Team Providers Name Role Phone Radha Godoy Primary Care Physician Encounter [facility] Date(s): 11/22/14 - 11/22/14 [facility] [address] [place] [address]- [place] Discharge Diagnosis: Multiple sclerosis Discharge Diagnosis: Blepharitis Discharge Diagnosis: Glaucoma suspect Discharge Diagnosis: POAG (primary open-angle glaucoma) Discharge Disposition: 01-Home or Self Care Attending Physician: Chelsie Dias MD Admitting Physician: Chelsie Dias MD Referring Physician: Radha Godoy MD Vital Signs No data available for this section Problem List Condition Effective Dates Status Health Status Informant Gait abnormality(Confirmed) Active Blepharitis(Confirmed) Active Vitamin B12 deficiency(Confirmed) Active Pelvic fracture(Confirmed) Active History of long-term treatment with Active high-risk medication(Confirmed) Shingles(Confirmed) Resolved penitentiary use of drug(Confirmed) Active Mastoiditis(Confirmed) Active Multiple [...] BID, # 120 tabs, 3 Refill(s), Pharmacy: [facility] # [id number], 2 tabs Oral BID Start Date: 05/30/15 Status: OrderedCalcium 600+D Oral, 0 Refill(s) Start Date: 01/29/15 Status: Orderedgabapentin 300 mg oral capsule 300 mg 1 caps, Oral, BID, # 90 caps, 0 Refill(s), Pharmacy: [facility] # [id number], 1 caps Oral BID Start Date: 05/30/15 Status: OrderedGilenya 0.5 mg, Oral, Daily, 0 Refill(s) Start Date: 10/04/13 Status: OrderedSimbrinza 1%- 0.2% ophthalmic suspension See Instructions, INSTILL ONE DROP TO THE RIGHT EYE TWICE A DAY, # 8 mL, 5 Refill(s), Pharmacy: [facility] #[id number] Start Date: 12/03/14 Status: OrderedVitamin B12 1,000 [...] 2009 Document Revised: 07/03/2012 Document Reviewed: 2009 [facility] Patient Information 2015 [employer] This information is not intended to replace advice given to you by your health care provider. Make sure you discuss any questions you have with your health care provider. No follow up information was provided. Referrals to Other Providers Referred by: Chelsie Dias MD
--- NOTE | 2017-04-16 21:16 | Emergency Department Report ---
General Adult HPI - General Chief complaint: Medical Emergency Stated complaint: weakness,unable to stand Time Seen by Provider: 04/16/17 20:42 Source: patient Mode of arrival: ambulatory Limitations: no limitations - History of Present Illness HPI narrative: Patient has had 24-36 hours of severe weakness, body aches, nausea, and difficulty standing. She has gotten to the point now where her and her son RN unable to take care of her activities of daily living. Patient has not had any fevers or chills, no cough, and states that this feels most like her previous MS exacerbations in the past. [facility]. - Related Data Home Medications Medication Instructions Recorded Confirmed Brinzolamide/Brimonidine Tart 1 drop EACH EYE BID #0 09/05/14 04/16/17 [Simbrinza 1%-0.2% Eye Drops] Latanoprost 1 drop EACH EYE HS #0 09/05/14 04/16/17 Acetaminophen [Acetaminophen Extra 1,000 mg PO Q6H PRN 04/16/17 04/16/17 Strength] Aspirin [Aspirin EC] 81 mg PO DAILY 04/16/17 04/16/17 Baclofen [Lioresal] 20 mg PO TID 04/16/17 04/16/17 Fingolimod HCl [Gilenya] 0.5 mg PO DAILY 04/16/17 04/16/17 Furosemide [Lasix] 20 mg PO DAILY 04/16/17 04/16/17 Ibuprofen 600 mg PO Q6H PRN 04/16/17 04/16/17 Spironolactone [Aldactone] 25 mg PO DAILY 04/16/17 04/16/17 Systane Eye Drops 1 drop EACH EYE BID 04/16/17 04/16/17 carBAMazepine [Carbamazepine ER] 300 mg PO QAM 04/16/17 04/16/17 carBAMazepine [Carbamazepine ER] 600 mg PO HS 04/16/17 04/16/17 Allergies Allergy/AdvReac Type Severity Reaction Status Date / Time Sulfa (Sulfonamide Allergy Unknown RASH Verified 04/16/17 21:13 Antibiotics) Review of Systems All systems: reviewed and negative except as stated PFSH Multiple sclerosis Chronic back pain/spinal stenosis with right foot drop, patient wears a brace Depression Surgical History: Back lumbar fusion. Hysterectomy - Social History Smoking status: Never smoker Substance use type: does not use Alcohol intake frequency: does not drink Physical Exam - Limitations Limitations: no limitations - General General appearance: alert - Normal Exams: Head:: Normocephalic without trauma Eyes:: Pupils are PERRLA w/ EOMI, No scleral icterus, irritation, or foreign bodies noted ENMT:: No facial trauma, nasal exudates, pharyngeal erythema, or exudates are noted Neck:: Full range of motion, without adenopathy, JVD, bruits or thyromegaly Chest/Respirations:: Clear all may, with good airflow, and symmetry bilaterally Cardiovascular:: Regular rate and rhythm, without murmur or gallop, Pulses 2+ all extremities, capillary refill, <2 seconds all extremities Abdomen:: Bowel sounds positive, soft, non-tender, non-distended, no hepatosplenomegaly, masses or bruits noted Lymphatic:: No lymphadenopathy, or lymphedema noted Integumentary:: No rashes, hives, or bruising noted, hair and nails, without abnormality Neurological:: Patient is alert, and oriented, cranial nerves, motor/sensory/ cerebellar, exams w/o gross deficits, to observation Psychiatric:: Patient exhibits, appropriate attention, emotion and affect - Extremities Exam Extremities exam: Present: other (diffuse body musculoskeletal tenderness, no deformities, no ecchymoses, and patient is neurovascularly intact in all 4 extremities) Course Vital Signs Temperature 98.9 F 04/16/17 20:48 Pulse Rate 104 H 04/16/17 20:48 Respiratory Rate 24 04/16/17 20:48 Pulse Oximetry 92 04/16/17 20:48 Temperature 98.9 F 04/16/17 20:48 Pulse Rate 104 H 04/16/17 21:00 Respiratory Rate 24 04/16/17 20:48 Blood Pressure 169/73 H 04/16/17 21:00 Pulse Oximetry 93 04/16/17 21:00 Medical Decision Making - [facility] Narrative Medical decision making narrative: Patient given Toradol 30 mg, slight Medrol 500 mg IV over one hour, and 1 L normal saline IV fluid bolus CBC - normal CMP - normal UA - normal CXR - normal VResp - pending Patient feeling better after IV medications, but weakness remains. Patient is discussed with Dr. Royal who will admit the patient inpatient for MS exacerbation pending respiratory viral panel. - Lab Data Result diagrams: 04/16/17 21:07 04/16/17 21:07 Lab Results 04/16/17 04/16/17 04/16/17 Range/Units 21:07 21:07 21:47 WBC 11.5 H (4.5-11.0) T/MM3 RBC 4.58 (4.00-5.20) M/MM3 Hgb 14.2 (12-16) GM/DL Hct 44.2 (36-46) % MCV 96.5 (80-100) UM3 MCH 31.0 (26-34) UUG MCHC 32.1 (31-37) GM/DL RDW Std Deviation 50.5 H (36.9-50.2) FL Plt Count 321 (130-400) T/MM3 MPV 10.5 (9.4-12.4) UM3 Immature Gran % (Auto) 0.7 H (0.0-0.5) % Neut % (Auto) 79.6 H (33-66) % Lymph % (Auto) 5.8 L (23-45) % [place] % (Auto) 11.1 H (0-9.0) % Eos % (Auto) 1.8 (0-4) % Baso % (Auto) 1.0 (0-2) % Neut # (Auto) 9.1 H (1.8-7.7) T/MM3 Lymph # (Auto) 0.7 L (1-4.8) T/MM3 [place] # (Auto) 1.3 H (0-0.8) T/MM3 Eos # (Auto) 0.2 (0-0.5) T/MM3 Baso # (Auto) 0.1 (0-0.2) T/MM3 Abs Immat Gran (auto) 0.08 H (0.00-0.03) T/MM3 Turbidity < 20 (0-20) Sodium 141 (134-144) MEQ/L Potassium 3.6 (3.6-5) MEQ/L Chloride 103 (98-107) MEQ/L Carbon Dioxide 28 (22-30) MEQ/L Anion Gap 10 (5-15) MEQ/L BUN 14.0 (7-17) MG/DL Creatinine 0.5 L (0.7-1.2) MG/DL GFR Calculation 122 BUN/Creatinine Ratio 28 H (6-26) RATIO Glucose 118 H (65-110) MG/DL Calculated Osmolality 273 (261-280) MOSM/KG Calcium 9.0 (8.4-10.2) MG/DL Total Bilirubin 0.60 (0.20-1.30) MG/DL Conjugated Bilirubin 0.00 (0.00-0.30) MG/DL Unconjugated Bilirubin 0.10 (0.00-1.1) MG/DL Icterus Index < 2 (0-7) AST 46 H (14-36) U/L ALT 61 H (9-52) U/L Alkaline Phosphatase 273 H (38-126) U/L Total Protein 7.1 (6.3-8.2) G/DL Albumin 4.0 (3.5-5.0) G/DL Globulin 3.1 (2.4-3.6) G/DL Albumin/Globulin Ratio 1.3 (1.1-2.2) RATIO Plasma Lactate 1.0 (0.6-2.2) MMOL/L Specimen Hemolysis < 15 (0-25) Ur Collection Type Urine, clean catch Urine Color Yellow (YELLOW) Urine Clarity Clear Urine pH 6.5 (5.0-8.0) Ur Specific [place] 1.020 (1.015-1.025) Urine Protein Negative (NEGATIVE) Urine Glucose (UA) Negative (NEGATIVE) Urine Ketones Trace A (NEGATIVE) Urine Occult Blood 1+ A (NEGATIVE) Urine Nitrate Negative (NEGATIVE) Urine Bilirubin Negative (NEGATIVE) Urine Urobilinogen 0.2 (NORMAL) EU/DL Ur Leukocyte Esterase Negative (NEGATIVE) Urine RBC 5-10 H (0-3) /HPF Urine WBC 0-1 (0-5) /HPF Ur Squamous Epith Cells 10-20 Urine Bacteria None seen (NEGATIVE) Urine Mucus Present Ur Culture Indicated? Cult not indicated Disposition Clinical Impression: Exacerbation of multiple sclerosis Disposition: 02 To [facility] Acute Care Condition: Improved Prescriptions: No Action Ibuprofen 600 mg PO Q6H PRN PRN Reason: Pain Acetaminophen [Acetaminophen Extra Strength] 1,000 mg PO Q6H PRN PRN Reason: Pain Baclofen [Lioresal] 20 mg PO TID carBAMazepine [Carbamazepine ER] 600 mg PO HS Aspirin [Aspirin EC] 81 mg PO DAILY carBAMazepine [Carbamazepine ER] 300 mg PO QAM Furosemide [Lasix] 20 mg PO DAILY Spironolactone [Aldactone] 25 mg PO DAILY Latanoprost 1 drop EACH EYE HS #0 Brinzolamide/Brimonidine Tart [Simbrinza 1%-0.2% Eye Drops] 1 drop EACH EYE BID #0 Fingolimod HCl [Gilenya] 0.5 mg PO DAILY Systane Eye Drops 1 drop EACH EYE BID Referrals: Radha Godoy MD [Family Provider] - - Seen By: physician
--- NOTE | 2017-04-16 22:49 | History & Physical Report ---
History of Present Illness Date: 04/16/17 Chief complaint: weakness HPI: Patient has had 24-36 hours of severe weakness, body aches, nausea, and difficulty standing. she notes that her right foot is quite numb and it feels like a club, and her left foot she has marked decreased inability to pivot on it. She tells me that this is not really similar to previous MS exacerbations that she doesn't really think that this is what that is, but she thinks perhaps she just fatigued. She states is not uncommon for her to have this happen every year at time of David with the stress of taking care of things around the holidays. She's been more fatigued beginning earlier in the week, and things progressed to the point this evening she couldn't get transferred from her commode to her motorized wheelchair etc. also She actually has been without her MS medication for the past 3 days with some confusion over learning that her assistance plan written out and that she didn' t know she had a co-pay. She has gotten to the point now where her and her son RN unable to take care of her activities of daily living. Patient has not had any fevers or chills , no cough, . Patient has had to be hospitalized in the [facility] for MS flares. Her only complaint at this time is some right-sided postherpetic neuralgia. She denies any cough, she does admit to nausea but that's chronic, she denies vomiting abdominal pain and diarrhea. She denies any peripheral edema. She denies orthopnea or PND. She denies any skin rash at this time Review of Systems All systems PM: 10-point ROS was reviewed, no additional remarkable complaints except Past Medical History Surgical History: Back lumbar fusion. Hysterectomy. Cholecystectomy 2016 Family History Updates: denies significant - Social History Smoking status: Never smoker Alcohol intake frequency: holidays/special occasions only Medications Home Medications Medication Instructions Recorded Confirmed Type Brinzolamide/Brimonidine Tart 1 drop EACH EYE BID #0 09/05/14 04/16/17 History [Simbrinza 1%-0.2% Eye Drops] Latanoprost 1 drop EACH EYE HS #0 09/05/14 04/16/17 History Acetaminophen [Acetaminophen Extra 1,000 mg PO Q6H PRN 04/16/17 04/16/17 History Strength] Aspirin [Aspirin EC] 81 mg PO DAILY 04/16/17 04/16/17 History Baclofen [Lioresal] 20 mg PO TID 04/16/17 04/16/17 History Fingolimod HCl [Gilenya] 0.5 mg PO DAILY 04/16/17 04/16/17 History Furosemide [Lasix] 20 mg PO DAILY 04/16/17 04/16/17 History Ibuprofen 600 mg PO Q6H PRN 04/16/17 04/16/17 History Spironolactone [Aldactone] 25 mg PO DAILY 04/16/17 04/16/17 History Systane Eye Drops 1 drop EACH EYE BID 04/16/17 04/16/17 History carBAMazepine [Carbamazepine ER] 300 mg PO QAM 04/16/17 04/16/17 History carBAMazepine [Carbamazepine ER] 600 mg PO HS 04/16/17 04/16/17 History Allergies Allergy/AdvReac Type Severity Reaction Status Date / Time Sulfa (Sulfonamide Allergy Unknown RASH Verified 04/16/17 21:13 Antibiotics) Exam Vital Signs: Temperature 98.9 F 04/16/17 20:48 Pulse Rate 104 H 04/16/17 21:00 Respiratory Rate 24 04/16/17 20:48 Blood Pressure 169/73 H 04/16/17 21:00 Pulse Oximetry 93 04/16/17 21:00 Height/Weight/BMI: Height 1.65 m Weight 93.6 kg Comments: in general she is quite pleasant she is alert and oriented 3 she is in no obvious distress Body mass index is 34 Neck is supple Facies are symmetric extraocular muscles intact Lungs are clear bilaterally Cardiovascular regular without murmur gallop or rub Abdomen is obese soft nontender nondistended normoactive bowel sounds Extremities no edema Neuro exam she is generally weak, she has a very hard time sitting up in bed on her own, Results - Labs CBC & Chem 7: 04/16/17 21:07 04/16/17 21:07 Assessment and Plan (1) Exacerbation of multiple sclerosis Current visit: Yes Status: Acute (2) Glaucoma Current visit: Yes Status: Acute (3) Post herpetic neuralgia Current visit: Yes Status: Acute Assessment and Plan: will treat with IV Solu-Medrol, despite her concerns that perhaps this is not a true exacerbation of MS, she's been off her medications for disease modification for 3 days, I'm not sure that that can actually lead to issues this acutely, but with her increased numbness in her foot and decreased ability to pivot etc. this does seem like an exacerbation. She does think that already she felt like she could move her feet a bit easier after receiving therapies in the emergency room. We can certainly touch with her neurologist tomorrow (Dr Vinicius Telles in [place]) or at least attempt so with the iday weekend being here, access may be limited will ask physical and occupational therapy to visit with her as well We'll try a Lidoderm patch on her right flank where her postherpetic neuralgia is. She doesn't think that the Tegretol Dr. Telles started her on has helped. - Physician Narrative Narrative: Date: 04/16/17 Time: 2248 Hospital Course Summary Disclaimer: The visit summary below is not to be considered part of the above Progress Note.
[2017-04-16] MEDS ORDERED: IBUPROFEN 200 MG TABLET PO PRN (23:23)
[2017-04-16] MEDS ORDERED: ACETAMINOPHEN 500 MG TABLET PO PRN (23:23)
[2017-04-16] MEDS ORDERED: ONDANSETRON 4 MG/2 ML INJECTION IVP PRN (23:32)
[2017-04-16] MEDS ORDERED: ACETAMINOPHEN 325 MG TABLET PO PRN (23:32)
[2017-04-17 00:12] VITALS: BMI 34.7
[2017-04-17] MEDS: LIDOCAINE 5% PATCH TOP SCH ×2 (00:52→09:13)
--- NOTE | 2017-04-17 08:31 | XRay Report ---
INDICATION: chills, weakness, PROCEDURE: CHEST 2-VIEWS UPRIGHT (PA & LAT) Encounter: Initial COMPARISON: May 01, 2014 and April 30, 2014 FINDINGS: Chronic mild elevation of the left hemidiaphragm and blunting of the costophrenic angle probably related to scarring or pleural thickening. The remaining lung may are clear. No new opacities. No pneumothorax or definite effusion. Heart size and mediastinal contours are stable. Pulmonary vascularity is normal. Impression: No focal pneumonia. .
[2017-04-17] MEDS ORDERED: BRINZOLAMIDE PO SCH (09:00)
[2017-04-17] MEDS ORDERED: BRIMONIDINE PO SCH (09:00)
[2017-04-17] MEDS ORDERED: MethylPREDNISolone SOD SUCC 1,000 MG in NS 250ml 250 ML IV SCH (09:00)
[2017-04-17] MEDS: SYSTANE EYE DROPS 0.7ml EACH EYE SCH ×3 (09:11→20:43)
[2017-04-17] MEDS: SPIRONOLACTONE 25 MG TABLET PO SCH (09:13)
[2017-04-17] MEDS: FUROSEMIDE 20 MG TABLET PO SCH (09:13)
[2017-04-17] MEDS: CARBAMAZEPINE 100 MG PO SCH (09:22)
[2017-04-17] MEDS: BACLOFEN 20 MG TABLET PO SCH ×3 (09:22→20:27)
[2017-04-17] MEDS: ASPIRIN *EC* 81 MG TABLET PO SCH (09:23)
[2017-04-17] MEDS: LIDOCAINE PATCH REMOVAL TOP SCH (12:40)
--- NOTE | 2017-04-17 14:31 | Progress Note ---
- Date 04/17/17 Subjective: Mrs. Luna feels better than yesterday and two days ago but is still not at baseline. Her Don has concerns about her going home - she's not safe yet. She continues to have paresthesias to her legs but her frontal headache has improved (but not resolved). She denies visual changes. She denies dizziness or chest pain or dyspnea. No abdominal pain, nausea, or GI complaints. Objective Vital signs: Temperature 96.7 F L 04/17/17 07:32 Pulse Rate 78 04/17/17 07:32 Respiratory Rate 16 04/17/17 07:32 Blood Pressure 147/67 H 04/17/17 07:32 Pulse Oximetry 93 04/17/17 07:32 Height/Weight/BMI: Height 1.65 m Weight 94 kg Body Mass Index 34.7 - Constitutional Present: no acute distress, well nourished, well developed - Routine HEENT Exam Head: Present: normocephalic ENT: Present: mucous membranes moist - Routine Respiratory Exam Present: CTA bilaterally - Routine Cardiovascular Exam Present: RRR, S1, S2 - Routine Abdominal Exam Present: soft, normoactive bowel sounds, non distended, non tender - Routine Extremities Exam Present: edema (trace ble), pulses intact - Routine Skin Exam Present: intact, dry, warm - Routine Neurological Exam Present: alert, oriented X3, CN II-XII intact, normal speech - Routine Psychiatric Exam Present: normal affect, normal thought process, cooperative Results - Labs CBC & Chem 7: 04/16/17 21:07 04/16/17 21:07 Assessment and Plan (1) Exacerbation of multiple sclerosis Current visit: Yes Status: Acute (2) Glaucoma Current visit: Yes Status: Acute (3) Post herpetic neuralgia Current visit: Yes Status: Acute Assessment and Plan: Impression MS, with exacerbation Glaucoma Post herpetic neuralgia Plan Improvement noted with IV steroids; not yet at baseline. PT recommends IP PT; OT recommends home with HH (pt already has outpt therapy set up at [facility] and her preference would be to continue this if possible). Check fasting, HS blood glucose. SSI low corrective regimen. Reassess tomorrow to determine dc plans. D/W Dr. Melissa. DVT Prophylaxis: SCD's Resuscitation Status: Full Code - Physician Narrative Narrative: S: Pt reports she's feeling better this am. Reports she came into the hospital only because of generalized weakness and that she wasn't able to transfer herself from her wheelchair to commode. Otherwise she denies any new sx's. Reports she has had right sided weakness chronically and has had numbness in he right leg chronically. O: Neur: CN2-12 intact, RUE and RLE 4/5 strength Lungs: CTAB, no wheezes A/P: Unlikely to be MS flare, will d/c steroids. Pt reports she had recent URI type sx's so possibly weak from viral illness. Date: 04/17/17 Time: 1530 Hospital Course Summary Disclaimer: The visit summary below is not to be considered part of the above Progress Note. Hospital Course: 04/17/17 Improvement noted with IV steroids; not yet at baseline. PT recommends IP PT; OT recommends home with HH. Check fasting, HS blood glucose. SSI low corrective regimen.
[2017-04-17] MEDS ORDERED: INSULIN ASPART 100unit/ml INJECTION SQ PRN (14:44)
[2017-04-17] MEDS ORDERED: LATANOPROST 0.005% EYE DROPS 2.5ml EACH EYE SCH (21:00)
[2017-04-17] MEDS ORDERED: CARBAMAZEPINE 100 MG PO SCH (21:00)
[2017-04-18] MEDS ORDERED: LIDOCAINE 5% PATCH TOP SCH (00:01)
[2017-04-18 07:42] VITALS: TEMP 96.3
[2017-04-18] MEDS: BRIMONIDINE TART PO SCH ×2 (08:24→08:36)
[2017-04-18] MEDS: Fingolimod Hcl [Gilenya] 0.5 MG PO SCH ×2 (08:24→08:39)
[2017-04-18] MEDS: BRINZOLAMIDE PO SCH ×2 (08:24→08:36)
[2017-04-18] MEDS: BACLOFEN 20 MG TABLET PO SCH ×2 (08:34→15:10)
[2017-04-18] MEDS: CARBAMAZEPINE 100 MG PO SCH (08:34)
[2017-04-18] MEDS: FUROSEMIDE 20 MG TABLET PO SCH (08:34)
[2017-04-18] MEDS: SPIRONOLACTONE 25 MG TABLET PO SCH (08:34)
[2017-04-18] MEDS: ASPIRIN *EC* 81 MG TABLET PO SCH (08:35)
[2017-04-18] MEDS: SYSTANE EYE DROPS 0.7ml EACH EYE SCH (08:35)
[2017-04-18] MEDS: LIDOCAINE PATCH REMOVAL TOP SCH (13:32)
[2017-04-18 15:12] VITALS: BP 133/62; PULSE 93; RESP 14; O2SAT 95
--- NOTE | 2017-04-18 16:27 | Discharge Summary ---
Discharge Information Date of admission: 04/16/17 23:01 Anticipated date of discharge: 04/18/17 Attending Physician: David Melissa MD Primary care physician: Radha Godoy MD - Discharge Diagnosis (1) Exacerbation of multiple sclerosis Status: Acute (2) Glaucoma Status: Acute (3) Post herpetic neuralgia Status: Acute - Laboratory Labs: 04/18/17 15:35 History of Present Illness HPI: Patient has had 24-36 hours of severe weakness, body aches, nausea, and difficulty standing. she notes that her right foot is quite numb and it feels like a club, and her left foot she has marked decreased inability to pivot on it. She tells me that this is not really similar to previous MS exacerbations that she doesn't really think that this is what that is, but she thinks perhaps she just fatigued. She states is not uncommon for her to have this happen every year at time of David with the stress of taking care of things around the holidays. She's been more fatigued beginning earlier in the week, and things progressed to the point this evening she couldn't get transferred from her commode to her motorized wheelchair etc. also She actually has been without her MS medication for the past 3 days with some confusion over learning that her assistance plan written out and that she didn' t know she had a co-pay. She has gotten to the point now where her and her son RN unable to take care of her activities of daily living. Patient has not had any fevers or chills , no cough, . Patient has had to be hospitalized in the [facility] and [facility] for MS flares. Her only complaint at this time is some right-sided postherpetic neuralgia. She denies any cough, she does admit to nausea but that's chronic, she denies vomiting abdominal pain and diarrhea. She denies any peripheral edema. She denies orthopnea or PND. She denies any skin rash at this time Objective Vital signs: Temperature 96.3 F L 04/18/17 07:41 Pulse Rate 93 04/18/17 15:00 Respiratory Rate 14 04/18/17 15:00 Blood Pressure 133/62 04/18/17 15:00 Pulse Oximetry 95 04/18/17 15:00 Height/Weight/BMI: Height 5 ft 5 in Weight 93.1 kg Body Mass Index 34.7 - Constitutional Present: no acute distress - Routine HEENT Exam Head: Present: normocephalic, atraumatic Eye: Present: EOMI, PERRL ENT: Present: mucous membranes moist - Routine Respiratory Exam Present: CTA bilaterally. Absent: wheezes, crackles - Routine Cardiovascular Exam Present: RRR, no murmur - Routine Abdominal Exam Present: soft, non distended, non tender - Routine Extremities Exam Present: no edema. Absent: cyanosis, clubbing - Routine Skin Exam Present: intact, dry. Absent: erythema - Routine Neurological Exam Present: alert, oriented X3 Hospital Course This is a general summary of the patient's hospital course. For more details refer to the complete medical record. Hospital course: Hospital discharge: Pt was admitted d/t generalized weakness. Pt reported she was getting over a cold and just had weakness where it was harder to transfer out of her wheelchair. She denied any other neurological sx's. She reported she has had MS for 30 years and she knows when she has MS related sx's and these were not MS related sx's. Pt received 1 dose of steroids for MS flare and then it was stopped since her sx's were not consistent with MS flare. Pt also declined MRI. Pt reported she just wanted to get stronger and was interested in PT/OT but pt did not qualify for inpt PT/OT. Case managment notified that pt would have to pay for hospital stay and so pt decided to go home and she felt she would be safe. Home health was set up for pt. It was discussed with pt that she had mild transaminitis which should be followed up as outpatient. Recommend renal panel on 04/20/2017, will give lab order with results called to pcp. Discharge Plan - Discharge Disposition Discharge Date: 04/18/17 *Condition: Improved Reason For Visit (Visit label in EMR): MS Flare - Discharge Medications *Discharge Medications: Continue Ibuprofen 600 mg PO Q6H PRN PRN Reason: Pain Baclofen [Lioresal] 20 mg PO TID carBAMazepine [Carbamazepine ER] 600 mg PO HS Aspirin [Aspirin EC] 81 mg PO DAILY carBAMazepine [Carbamazepine ER] 300 mg PO QAM Furosemide [Lasix] 20 mg PO DAILY Spironolactone [Aldactone] 25 mg PO DAILY Latanoprost 1 drop EACH EYE HS #0 Brinzolamide/Brimonidine Tart [Simbrinza 1%-0.2% Eye Drops] 1 drop RIGHT EYE BID #0 Fingolimod HCl [Gilenya] 0.5 mg PO DAILY Systane Eye Drops 1 drop EACH EYE BID Discontinued Acetaminophen [Acetaminophen Extra Strength] 1,000 mg PO Q6H PRN PRN Reason: Pain - Discharge Packet/Instructions *Diet: Regular *Activity: As tolerated Additional Instructions: Recommend PCP follow up in 5-7 days *Expected Signs/Symptoms: Weakness *Notify Physician if: [place], focal weakness, or worsening generalized weakness - Referrals/Follow Up - Patient Handouts - Dismissal Complete Discharge Instructions are:: Complete Physician Narrative - Narrative Attestation Narrative: Date: 04/18/17 Time: 2614
== END 2017-04-18 17:05 | disposition home health service (06) ==
LOC: ED 20:42 → INTOOBSV 23:01 → MED 23:01 → SUATTDRO 23:01 → MED 23:20
PROVIDERS: ADMIT Pediatrics; ATTEND Internal Medicine